=== PATIENT | female | born 1955 | race Caucasian/White ===

== ENCOUNTER → 2017-04-11 | Outpatient (CLI) | payer OTHER ==
[~2017-04-11] VITALS: Ht 154.9 cm; Wt 85.0 kg
[~2017-04-11] MED LIST: CALCIUM 500 +1 EACH PO; CALCIUM 600 +1 EA14 PO; CELEXA10 MG PO; HYDROCHLOROTHIA25 MG PO; VITAMIN B-121000 MC1 SL; VITAMIN D33000 UNIT PO; VITAMIN D400 UNIT PO; ZESTRIL20 MG PO
[2017-04-11 18:53] VITALS: BP 130/76
== END | disposition home or self-care (01) ==
LOC: IVINF 18:39
DX: M85.80 Other specified disorders of bone density and structure, unspecified site (principal); Z87.19 Personal history of other diseases of the digestive system
CPT/HCPCS: 96365; J3489

== ENCOUNTER 2017-09-17 06:34 | Emergency (ER) | payer OTHER ==
[~2017-09-17] VITALS: Ht 157.5 cm; Wt 86.2 kg
[2017-09-17 07:14] LABS: BASOPHIL (%) 1.8 % (0-1); BASOPHIL COUNT 0.1 K/uL (0-0.1); EOSINOPHIL (%) 0.9 % (0-5); EOSINOPHIL COUNT 0.1 K/uL (0-0.3); HEMOGLOBIN 13.5 G/DL (11.9-15.5); IMMATURE GRANULOCYTE (%) 0.6 % (0.0-0.7); LYMPHOCYTE COUNT 1.4 K/uL (1.0-2.8); MCH 28.6 PG (29.0-34.0); MCHC 33.8 G/DL (30.0-36.0); MCV 84.7 FL (83-99); MONOCYTE (%) 8.4 % (3-12); MONOCYTE COUNT 0.6 K/uL (0-0.8); NEUTROPHIL (%) 67.3 % (45-76); NEUTROPHIL COUNT 4.5 K/uL (1.8-6.4); PLATELET COUNT 242 K/uL (156-360); RBC DIS.WIDTH-CV 13.7 % (11.8-14.6); RBC DIS.WIDTH-SD 42.4 % (39-53); RED BLOOD COUNT 4.72 M/uL (3.80-5.20); WHITE BLOOD COUNT 6.8 K/uL (4.1-10.2)
[2017-09-17 07:34] LABS: CHLORIDE 104 MEQ/L (99-109); POTASSIUM 3.4 MEQ/L (3.7-5.4); SODIUM 140 MEQ/L (136-147)
[2017-09-17 07:39] LABS: CREATININE 0.7 MG/DL (0.6-1.3); GFR ESTIMATE (CALCULATED) > 59 mL/min/; GLUCOSE 105 mg/dL (70-99); UREA NITROGEN (BUN) 17 mg/dL (9-23)
[2017-09-17 07:42] LABS: TROP-I INTERPRETATION NEGATIVE; TROPONIN-I 0.01 ng/mL (0.0-0.30)
[2017-09-17 09:46] LABS: TROP-I INTERPRETATION NEGATIVE; TROPONIN-I < 0.01 ng/mL (0.0-0.30)
[2017-09-17 11:28] VITALS: BP 135/90
[2017-09-17] MEDS ORDERED: XANAX0.5 MG PO (11:53)
== END 2017-09-17 11:29 | disposition home or self-care (01) ==
LOC: EME 06:34
PROVIDERS: Emergency Medicine
DX: R07.89 Other chest pain (principal); F41.9 Anxiety disorder, unspecified; I10 Essential (primary) hypertension; E55.9 Vitamin D deficiency, unspecified; Z88.6 Allergy status to analgesic agent; Z88.2 Allergy status to sulfonamides; Z91.040 Latex allergy status
CPT/HCPCS: 71045; 80048; 84484; 85025; 93005; 99281; 99285